=== PATIENT | female | born 1955 | race African-American/Black ===

== ENCOUNTER 2016-12-09 14:13 | Emergency (ER) | payer BC ==
[2016-12-09 17:08] LABS: BASOPHILS 0.8 %; BASOPHILS ABSOLUTE 0.05 10/3/uL (0.0-0.16); EOSINOPHILS 5.3 %; EOSINOPHILS ABSOLUTE 0.31 10/3/uL (0.0-0.53); ER CBC TAT 0 Hrs 12 Mins; HEMOGLOBIN 11.4 g/dL (12.0-16.0); IMMATURE GRANULOCYTES 8.8 %; IMMATURE GRANULOCYTES ABSOLUTE 0.52 10/3/uL (0.0-0.11); LYMPHOCYTES 27.5 %; LYMPHOCYTES ABSOLUTE 1.62 10/3/uL (0.67-4.30); MEAN CORPUS HGB CONC 32.6 g/dL (32.0-36.0); MEAN CORPUSCULAR HEMOGLOB 28.9 pg (26.0-34.0); MEAN CORPUSCULAR VOLUME 88.6 fL (80-100); MEAN PLATELET VOLUME 13.6 fL (9.2-13.0); MONOCYTES 6.6 %; MONOCYTES ABSOLUTE 0.39 10/3/uL (0.21-1.20); RBC DISTRIBUTION WIDTH 14.8 % (12.0-16.0); RED CELL COUNT 3.95 10/6/uL (4.0-5.6); WHITE BLOOD CELLS 5.9 10/3/uL (4.5-10.5)
[2016-12-09 17:09] LABS: PLATELET COUNT 193 10/3/uL (150-400)
[2016-12-09 17:10] LABS: MANUAL DIFF NO %
[2016-12-09 17:14] LABS: INTERNATIONAL NORMAL RATI 1.1 UNITS (-); PARTIAL THROMBO TIME 27.6 SEC (22.5-37.2); PROTIME (NOT ORD) 13.9 SEC (12.0-14.5)
[2016-12-09 17:16] LABS: CHEST PAIN PROFILE TAT 0 Hrs 20 Mins; CHLORIDE, SERUM 109 MMOL/L (96-112); CO2 (CARBON DIOXIDE) 21 MMOL/L (24-34); CREATININE 1.49 MG/DL (0.55-1.02); GFR AFRICAN AMERICAN 44 ML/MIN (>=60); GFR NON AFRICAN AMERICAN 38 ML/MIN (>=60); GLUCOSE, SERUM 85 MG/DL (60-99); POTASSIUM, SERUM 4.6 MMOL/L (3.5-5.3); SODIUM, SERUM 138 MMOL/L (135-148); TROPONIN I <0.02 NG/ML (<0.05)
[2016-12-09 17:17] LABS: BUN (BLOOD UREA NITROGEN) 21 MG/DL (6-23); CALCIUM, SERUM 6.7 MG/DL (8.5-10.4)
[2016-12-09 17:20] LABS: BAND NEUTROPHILS 14 %; EOSINOPHILS 5 %; ER DIFF TAT 0 Hrs 24 Mins; IMMATURE GRANS ABSOLUTE (CALC) 0.06 10/3/uL (0.0-0.11); LYMPHOCYTES 29 %; LYMPHOCYTES ABSOLUTE (CALC) 1.71 10/3/uL (0.67-4.30); METAMYELOCYTES 1 %; MONOCYTES 5 %; NEUTROPHILS ABSOLUTE (CALC) 3.54 10/3/uL (2.02-8.40); SEGMENTED NEUTROPHIL (0) 46 %; TOTAL NUCLEATED CELLS 100
[2016-12-09 17:21] LABS: GIANT PLATELET RARE; PLATELET ESTIMATE ADQ (ADEQUATE); POIKILOCYTOSIS 1+ (5-10/OIF) (0-5/OIF)
[2016-12-09 18:26] LABS: ALBUMIN 3.5 G/DL (3.5-5.0)
[2016-12-26] MEDS ORDERED: ASAEC PO (11:46)
[2016-12-26] MEDS ORDERED: I40 PO (11:47)
[2016-12-26] MEDS ORDERED: VITAMIN D31000 UNIT PO (11:47)
[2016-12-26] MEDS ORDERED: FISH-EPA1000 MG PO (11:47)
[2016-12-26] MEDS ORDERED: ZESTORETIC1 TA1 PO (11:47)
[2016-12-26] MEDS ORDERED: MAGOX4 PO (11:48)
[2016-12-26] MEDS ORDERED: IRON SUPPLEMENT OTC PO (11:48)
[2016-12-26] MEDS ORDERED: CORTISONE TOP (11:49)
[2016-12-26] MEDS ORDERED: REVLIMID10 MG PO (11:51)
[2016-12-28] MEDS ORDERED: NORCO1 TA1 PO (15:02)
[2017-01-09] MEDS ORDERED: REVLIMID10 MG PO (21:10)
[2017-01-09] MEDS ORDERED: ZOFRAN8 PO (21:11)
[2017-01-09] MEDS ORDERED: ZOVIRAX400 MG PO (21:11)
[2017-01-09] MEDS ORDERED: FOLIC PO (21:12)
[2017-01-09] MEDS ORDERED: TUMSROLL PO (21:17)
[2017-01-10] MEDS ORDERED: PROVHFA INH (12:24)
[2017-01-18] MEDS ORDERED: I40 PO (14:06)
[2017-01-18] MEDS ORDERED: ZESTORETIC1 TA1 PO (14:06)
[2017-01-19] MEDS ORDERED: MAGOX4 PO (16:43)
[2017-01-19] MEDS ORDERED: ELIMITE CREAM 560 GM TOP (16:44)
[2017-01-19] MEDS ORDERED: MARI5 PO (16:46)
== END 2016-12-09 19:40 | disposition home or self-care (01) ==
LOC: ER 14:13
PROVIDERS: Nurse Practitioner
DX: C95.90 Leukemia, unspecified not having achieved remission (principal); E83.51 Hypocalcemia; E83.42 Hypomagnesemia; D64.9 Anemia, unspecified; I12.9 Hypertensive chronic kidney disease with stage 1 through stage 4 chronic kidney disease, or unspecified chronic kidney disease; N18.9 Chronic kidney disease, unspecified
CPT/HCPCS: 71020; 80048; 82040; 83735; 84484; 85025; 85610; 85730; 93005; 99284; A9270-GY